=== PATIENT | male | born 1995 | race Two or more races ===

== ENCOUNTER 2022-02-24 00:20 | Emergency (ER) | payer SELFPAY ==
[~2022-02-24] VITALS: Ht 180.3 cm; Wt 99.8 kg
[2022-02-24] MEDS ORDERED: KETOROLAC TROMETH 60MG/2ML VIAL IM ONE (02:00)
[2022-02-24 02:15] VITALS: BP 110/68
== END 2022-02-24 03:26 | disposition home or self-care (01) ==
LOC: ER 00:20
DX: R07.89 Other chest pain (principal); V43.62XA Car passenger injured in collision with other type car in traffic accident, initial encounter; Y93.89 Activity, other specified; Y92.410 Unspecified street and highway as the place of occurrence of the external cause; Y99.8 Other external cause status
CPT/HCPCS: 71045; 93005; 96372; 99283; J1885